=== PATIENT | male | born 1950 ===

== ENCOUNTER 2021-10-17 11:45 | Outpatient (CLI) | payer MEDICARE, BC | END 2021-10-17 11:46 | disposition home or self-care (01) | LOC: BICCT 11:45 | PROVIDERS: ATTEND Neurological Surgery | DX: S06.5X9A Traumatic subdural hemorrhage with loss of consciousness of unspecified duration, initial encounter (principal); S02.119A Unspecified fracture of occiput, initial encounter for closed fracture | CPT/HCPCS: 70450 ==